=== PATIENT | female | born 1955 | race Caucasian/White ===

== ENCOUNTER 2021-07-14 07:46 | Day surgery (SDC) | payer MEDICARE ==
[~2021-07-14] VITALS: Ht 172.7 cm; Wt 78.0 kg
[~2021-07-14 07:46] MED LIST: ACET325T9 PO; ACETAMINOPHEN 500 MG TABLET PO PRN; ACYC-12 PO; ATOR40TA59 PO; COLLAGEN PO; DICL20GE TP; ESOM40CA PO; ESTR10TA VG; HYDR-2761 PO; HYDROmorphone 2 MG/ML VIAL IVP PRN; IV RINGERS,LACTATED 1000ML 1,000 ML IV SCH; MAGN250T10 PO; MELO15TA6 PO; MORPHINE SULFATE 2 MG/ML INJ. IVP PRN; MULT-445 PO; PROCHLORPERAZINE 10 MG/2 ML VIAL. IVP PRN; SPIR100T4 PO; VENL37.56 PO; ceFAZolin SODIUM IV Push 1 GM VIAL. IVP PRN; fentaNYL PF VIAL 100 MCG/2 ML VIAL IVP PRN
[2021-07-14 08:10] VITALS: BP 129/73
[2021-07-14] MEDS ORDERED: SURGICEL HEMOSTAT 4X8 EACH. ONE (09:24)
[2021-07-14] MEDS ORDERED: IOHEXOL 300 MG/ML 50 ML VIAL. ONE (09:24)
[2021-07-14] MEDS ORDERED: BUPIVACAINE-EPI 0.25% 30 ML VIAL KIT. ONE (09:24)
[2021-07-14] MEDS ORDERED: PROPOFOL 10 MG/ML (20ML) VIAL. IV ONE (09:28)
[2021-07-14] MEDS ORDERED: DEXAMETHASONE SOD PHOS 4 MG/ML VIAL ONE (09:28)
[2021-07-14] MEDS ORDERED: LIDOCAINE 2% PF 5 ML VIAL. ONE (09:28)
[2021-07-14] MEDS ORDERED: ONDANSETRON PF 4 MG/2 ML VIAL. ONE (09:28)
[2021-07-14] MEDS ORDERED: MIDAZOLAM HCL/PF 2 MG/2 ML VIAL. ONE (09:29)
[2021-07-14] MEDS ORDERED: ROCURONIUM 100 MG/10 ML VIAL. ONE (09:29)
[2021-07-14] MEDS ORDERED: fentaNYL PF VIAL 100 MCG/2 ML VIAL ONE ×2 (09:29→11:02)
[2021-07-14] MEDS ORDERED: NEOSTIGMINE METHYLSULFATE 5 MG/5 ML SYRINGE. ONE (09:29)
[2021-07-14] MEDS ORDERED: GLYCOPYRROLATE 1 MG/5 ML VIAL. ONE (09:31)
[2021-07-14] MEDS ORDERED: ePHEDrine PF IN SALINE 50 MG/10 ML SYRINGE. IV ONE (10:55)
--- NOTE | 2021-07-14 11:15 | PDOC4 ---
Operative Note Operative Note Date: July 142020 at 1112 Preoperative diagnosis: Chronic cholecystitis cholelithiasis Postoperative diagnosis: Same Procedure: Laparoscopic cholecystectomy with fluorescein cholangiography Surgeon: Rubens Specimen: Gallbladder Dictation: Patient is a 65-year-old female with complaints of right upper quadrant abdominal pain ultrasound showing gallstones. Procedure of laparoscopic cholecystectomy was explained to the patient detail risk benefits were also discussed including bleeding infection injury to intra-abdominal contents possible necessitating further open operations alternatives to this procedure also discussed with patient who seemed to understand and gave a verbal written consent to have procedure performed. Patient was taken to the operating room placed in the supine position general anesthesia was initiated once patient was sleeping intubated her abdomen was prepped and draped usual sterile fashion using ChloraPrep. Area just below the umbilicus was injected with quarter percent Marcaine with epinephrine incision made with a blade scalpel and a varies needle was placed within the abdomen creating pneumoperitoneum once this was complete the millimeter port was placed in a 5 mm camera was placed within the abdomen which was inspected no other abnormalities were noted. A 5 mm port was placed in the epigastrium a 5 mm port was placed in the right midabdomen and a 5 mm port was placed in the right lateral abdomen. The dome of the g allbladder is grasped retracted cephalad the infundibulum the gallbladder is grasped retracted laterally exposing the triangle of adherent tissues were taken down with blunt dissection the fluorescein cholangiography was performed which showed good dye in the cystic duct and common bile duct not suggestive of any obstruction. The cystic duct was doubly clipped and transected the cystic artery was clipped and transected the gallbladder is taken off the liver with hook electrocautery placed in Endo Catch bag and removed the umbilicus the right upper quadrant was irrigated and suctioned dry hemostasis deemed be appropriate the pneumoperitoneum was reduced all ports were removed the fascial defect at the umbilicus was closed with [id number] 0 Vicryl suture and skin was reapproximated all port sites for subcuticular Monocryl Mastisol Steri-Strips and island dressings were applied. Patient was awakened and extubated in the operating room taken to recovery in stable condition all sponge instrument needle counts listed as correct estimated blood loss 10 mL. CHELY WATSON MD Jul 14, 2021 11:15
[2021-07-14] MEDS ORDERED: OXYC-325 PO (11:17)
--- NOTE | 2021-07-14 11:20 | DISCH ---
DISCHARGE INSTRUCTIONS Condition on Discharge Condition on Discharge: Stable Activity After Discharge Activity Instructions for Disc: Avoid exertion Other activity instructions: No lifting more than 20 pounds for 2-week Diet after Discharge Diet after Discharge: Low Fat Wound Incision Care Other wound/incision instructi: Jazlyn shower in 24-hour Contacting the DRMelodie after DC Call your doctor for: If your condition worsens Follow-Up Follow up with: Dr. Watson in 2 weeks CHELY WATSON MD Jul 14, 2021 11:19
[2021-07-14] MEDS ORDERED: oxyCODONE/APAP 5/325 1 TAB TABLET ONE (11:55)
[2021-07-14] MEDS ORDERED: oxyCODONE/APAP 5/325 1 TAB TABLET PO ONE (12:00)
[2021-07-14 12:29] VITALS: BP 116/56
[2021-07-15] MEDS ORDERED: CEPH500C PO (03:59)
--- NOTE | 2021-07-15 18:06 | PATHOLOGY ---
[facility] Accession Number: [id number] . 01 Material submitted: . gallbladder - GALLBLADDER AND CONTENTS . 01 Clinical history: . CHRONIC CHOLECYSTITIS WITH CALCULUS . 02 Diagnosis: Gallbladder, cholecystectomy: - Cholelithiasis. - Chronic and mild acute cholecystitis. (JPM:dominic; 07/15/2021) S 07/15/2021 1429 Local . 02 Comment: There is no evidence of malignancy. (JPM:dominic; 07/15/2021) . 02 Electronically signed: . Amilcar Garcia MD, Pathologist NPI- [id number] . 01 Gross description: . Fixative: Formalin Labeled: Gallbladder and contents Specimen received: Previously disrupted gallbladder Dimensions: 8.2 x 3.5 x 2.4 cm Serosa: Purple-red to purple-griffin and smooth with mild vasculature Lymph node: None identified Mucosa: Velvety, bile-stained Average wall thickness: Up to 0.3 cm Calculi: Present displaying a black, multifaceted appearance Abnormalities: None identified . A1- Economics Consultant body, fundus, and the cystic duct margin. ([facility]; 07/14/2021) NRI/NRI 07/14/20216 Local . 02 Pathologist provided ICD-10: K80.12 . 02 CPT . 232892 Specimen Comment: A courtesy copy of this report has been sent to [phone], [phone] Specimen Comment: [id number] Specimen Comment: Report sent to / DR BAKER Specimen Comment: A duplicate report has been generated due to demographic updates. Performed at: [address], [place], [place] [id number] MD Jose Gtz MD Phone: [phone] Performed at: 02 [facility] [address] [place], [place] [id number] MD Amilcar Garcia MD Phone: [phone]
== END 2021-07-14 12:50 | disposition home or self-care (01) ==
LOC: SURG 07:46
PROVIDERS: ATTEND Surgery
DX: K80.12 Calculus of gallbladder with acute and chronic cholecystitis without obstruction (principal); R10.9 Unspecified abdominal pain; E78.00 Pure hypercholesterolemia, unspecified; F32.9 Major depressive disorder, single episode, unspecified; K21.9 Gastro-esophageal reflux disease without esophagitis; Z98.890 Other specified postprocedural states; Z79.899 Other long term (current) drug therapy
CPT/HCPCS: 47563; A4213; A4364; A4930; A6219; J0690; J1100; J2250; J2405; J2704; J2710; J3010; J3490; 88304; A4657; Q9967

== ENCOUNTER 2021-07-14 23:07 | Emergency (ER) | payer MEDICARE ==
[~2021-07-14] VITALS: Ht 172.7 cm; Wt 75.0 kg
[~2021-07-14 23:07] MED LIST changes: -ACETAMINOPHEN 500 MG TABLET PO PRN; -HYDROmorphone 2 MG/ML VIAL IVP PRN; -IV RINGERS,LACTATED 1000ML 1,000 ML IV SCH; -MORPHINE SULFATE 2 MG/ML INJ. IVP PRN; +OXYC-325 PO; -PROCHLORPERAZINE 10 MG/2 ML VIAL. IVP PRN; -ceFAZolin SODIUM IV Push 1 GM VIAL. IVP PRN; -fentaNYL PF VIAL 100 MCG/2 ML VIAL IVP PRN
[2021-07-14] MEDS ORDERED: FAMOTIDINE 20 MG/2 ML VIAL IVP ONE (23:45)
[2021-07-14] MEDS ORDERED: IV NORMAL SALINE 1000ML BAG 1,000 ML IV ONE (23:45)
[2021-07-14] MEDS ORDERED: HYDROmorphone 2 MG/ML VIAL IVP ONE (23:45)
[2021-07-15 00:08] LABS: BASO # 0.1 x10^3/uL (0.0-0.2); BASO % 1 % (0-3); EOS % 0 % (0-3); HEMATOCRIT 35.3 % (36.0-47.0); HEMOGLOBIN 12.1 g/dL (12.0-15.5); LYMPH # 0.5 x10^3/uL (1.0-4.8); LYMPH % 4 % (24-48); MEAN CORPUSCULAR HEMOGLOBIN 31 pg (25-35); MEAN CORPUSCULAR HGB CONC 34 g/dL (31-37); MEAN CORPUSCULAR VOLUME 89 fL (79-100); MONO # 0.6 x10^3/uL (0.0-1.1); MONO % 5 % (0-9); NEUT # 10.5 x10^3/uL (1.8-7.7); NEUT % 90 % (31-73); PLATELET COUNT 213 x10^3/uL (140-400); RED BLOOD COUNT 3.96 x10^6/uL (3.50-5.40); RED CELL DISTRIBUTION WIDTH 13.3 % (11.5-14.5); WHITE BLOOD COUNT 11.7 x10^3/uL (4.0-11.0)
--- NOTE | 2021-07-15 00:13 | RAD ---
XR CHEST 1V Clinical Indication: Reason: shoulder pain Comparison: None. Findings: The cardiomediastinal silhouette is normal. There is bibasilar atelectasis. There is no pneumothorax. No pleural effusion is appreciated. No acute bone abnormality. There is mild intraperitoneal free air. In discussion with Dr. Fuller, patient had cholecystectomy toda y. IMPRESSION: Bibasilar atelectasis. FOR INTERNAL CODING PURPOSES Critical result: Findings discussed with Dr. Fuller in the ED at 07/15/2021 12:08 AM. RESULT CODE: (C) Electronically signed by: Jason Swift MD (07/15/2021 12:10 AM) [facility]
--- NOTE | 2021-07-15 00:17 | RAD ---
RIGHT SHOULDER , 3 VIEWS Clinical Indication: Reason: shoulder pain / Spl. Instructions: / History: Comparison: None. Findings: There is no acute fracture or dislocation. The acromioclavicular and glenohumeral joints are intact. There is mild arthropathy. There is right basilar atelectasis. There is no evidence of a displaced ri b fracture. There is no soft tissue abnormality. Mild intraperitoneal free air on the right is compatible with history of gallbladder surgery today. IMPRESSION: No acute fracture or dislocation. Electronically signed by: Jason Swift MD (07/15/2021 12:14 AM) [facility]
[2021-07-15 00:18] LABS: CALCIUM 9.4 mg/dL (8.5-10.1); GFR 55.3; POTASSIUM 4.5 mmol/L (3.5-5.1)
[2021-07-15 00:24] LABS: ALBUMIN 3.7 g/dL (3.4-5.0); ALBUMIN/GLOBULIN RATIO 0.9 (1.0-1.7); MAGNESIUM 2.1 mg/dL (1.8-2.4); TOTAL BILIRUBIN 0.6 mg/dL (0.2-1.0); TOTAL PROTEIN 7.6 g/dL (6.4-8.2)
--- NOTE | 2021-07-15 01:12 | PHYS DOC ---
General Adult EDM: Chief Complaint: POST-OP PROBLEM HPI: HPI: 65-year-old female past medical history of hyperlipidemia, presents the ED with her , (patient consents to his/her/their knowledge and involvement in pts ' medical care), complaints of right shoulder pain that started prior to ED arrival. Reports she had a laparoscopic cholecystectomy with Dr. Pacheco earlier today. Is belching and has tolerated oral intake since. Denies flatus. No bowel movement since surgery. Took oxycodone at 6pm. Also reports pain at incision sites. Review of Systems: Review of Systems: Constitutional: Denies fever or chills. [] Eyes: Denies change in visual acuity. [] HENT: Denies nasal congestion or sore throat. [] Respiratory: Denies cough or shortness of breath. [] Cardiovascular: Denies chest pain or edema. [] GI: Denies nausea, vomiting, bloody stools or diarrhea. [] : Denies dysuria or hematuria Musculoskeletal: Denies back pain or flank pain Integument: Denies rash or diaphoresis Neurologic: Denies headache, focal weakness or sensory changes. [] Endocrine: Denies polyuria or polydipsia. [] Lymphatic: Denies swollen glands. [] Psychiatric: Denies depression or anxiety. [] Heart Score: C/O Chest Pain: No Risk Factors: Risk Factors: DM, Current or recent (<one month) smoker, HTN, HLP, family history of CAD, obesity. Risk Scores: Score 0 - 3: 2.5% MACE over next 6 weeks - Discharge Home Score 4 - 6: 20.3% MACE over next 6 weeks - Admit for Clinical Observation Score 7 - 10: 72.7% MACE over next 6 weeks - Early Invasive Strategies Current Medications: Current Medications Medications (Trade) Dose Ordered Sig/Romeo Start Time Stop Time Status Last Admin Dose Admin Famotidine (Pepcid Vial) 20 mg 1X ONCE 07/14/21 23:45 07/14/21 23:46 DC 07/15/21 00:09 20 MG Hydromorphone HCl (Dilaudid) 1 mg 1X ONCE 07/14/21 23:45 07/14/21 23:46 DC 07/15/21 00:06 1 MG Sodium Chloride 1,000 ml @ 1,000 mls/hr 1X ONCE 07/14/21 23:45 07/15/21 00:44 DC 07/15/21 00:07 1,000 MLS/HR Allergies: Allergies: Allergies Coded Allergies Type Severity Reaction Last Updated Verified No Known Drug Allergies 07/14/21 No Physical Exam: PE: Constitutional: Appears in pain, afebrile but nontoxic-appearing HENT: Normocephalic, atraumatic, Eyes: EOMI, conjunctiva normal, no discharge. Neck: Normal range of motion, supple, Cardiovascular: S1/2 present, regular rhythm Lungs & Thorax: Speaking in full sentences, bilateral equal chest rise, no tachypnea or increased work of breathing Abdomen: soft, no guarding or rigidity, incision sites clean/dry/intact with no rash or wound dehiscence Skin: Warm, dry, no erythema, no rash. [] Back: No tenderness, no CVA tenderness. [] Extremities: No tenderness, no cyanosis, no lower extremity edema, right shoulder with full range of motion motion, equal radial pulses, axillary nerve sensation intact bilaterally Neurologic: Alert and oriented X 3, normal motor function, normal sensory function, no focal deficits noted. [] Psychologic: Affect normal, judgement normal, mood normal. [] Current Patient Data: Labs: Laboratory Tests Test 07/15/21 00:02 White Blood Count 11.7 x10^3/uL (4.0-11.0) H Red Blood Count 3.96 x10^6/uL (3.50-5.40) Hemoglobin 12.1 g/dL (12.0-15.5) Hematocrit 35.3 % (36.0-47.0) L Mean Corpuscular Volume 89 fL (79-100) Mean Corpuscular Hemoglobin 31 pg (25-35) Mean Corpuscular Hemoglobin Concent 34 g/dL (31-37) Red Cell Distribution Width 13.3 % (11.5-14.5) Platelet Count 213 x10^3/uL (140-400) Neutrophils (%) (Auto) 90 % (31-73) H Lymphocytes (%) (Auto) 4 % (24-48) L Monocytes (%) (Auto) 5 % (0-9) Eosinophils (%) (Auto) 0 % (0-3) Basophils (%) (Auto) 1 % (0-3) Neutrophils # (Auto) 10.5 x10^3/uL (1.8-7.7) H Lymphocytes # (Auto) 0.5 x10^3/uL (1.0-4.8) L Monocytes # (Auto) 0.6 x10^3/uL (0.0-1.1) Eosinophils # (Auto) 0.0 x10^3/uL (0.0-0.7) Basophils # (Auto) 0.1 x10^3/uL (0.0-0.2) Platelet Estimate Pending Sodium Level 134 mmol/L (136-145) L Potassium Level 4.5 mmol/L (3.5-5.1) Chloride Level 100 mmol/L (98-107) Carbon Dioxide Level 25 mmol/L (21-32) Anion Gap 9 (6-14) Blood Urea Nitrogen 22 mg/dL (7-20) H Creatinine 1.0 mg/dL (0.6-1.0) Estimated GFR (Cockcroft-Gault) 55.3 BUN/Creatinine Ratio 22 (6-20) H Glucose Level 224 mg/dL (70-99) H Calcium Level 9.4 mg/dL (8.5-10.1) Magnesium Level 2.1 mg/dL (1.8-2.4) Total Bilirubin 0.6 mg/dL (0.2-1.0) Aspartate Amino Transferase (AST) 42 U/L (15-37) H Alanine Aminotransferase (ALT) 234 U/L (14-59) H Alkaline Phosphatase 163 U/L (46-116) H Troponin I High Sensitivity 8 ng/L (4-50) Total Protein 7.6 g/dL (6.4-8.2) Albumin 3.7 g/dL (3.4-5.0) Albumin/Globulin Ratio 0.9 (1.0-1.7) L Lipase 71 U/L (73-393) L Laboratory Tests 07/15/21 00:02 Laboratory Tests 07/15/21 00:02 Vital Signs: Vital Signs Date Time Temp Pulse Resp B/P (MAP) Pulse Ox O2 Delivery O2 Flow Rate FiO2 07/15/21 00:06 14 92 Room Air EKG: EKG: Sinus rhythm 72 bpm, no axis deviation, normal intervals, questionable T wave inversion in lead III, no ST elevation or ST depression, denies chest pressure or tightness Radiology/Procedures: Radiology/Procedures: IMAGING REPORT Signed PATIENT: TANNA HARVEY ACCOUNT: [id number] : 1955 LOCATION: ER AGE: 65 SEX: F EXAM STATUS: REG ER ORD. PHYSICIAN: VICENTE DAVIS DO REASON: shoulder pain PROCEDURE: SHOULDER 2+V RIGHT RIGHT SHOULDER , 3 VIEWS Clinical Indication: Reason: shoulder pain / Spl. Instructions: / History: Comparison: None. Findings: There is no acute fracture or dislocation. The acromioclavicular and glenohumeral joints are intact. There is mild arthropathy. There is right basilar atelectasis. There is no evidence of a displaced rib fracture. There is no soft tissue abnormality. Mild intraperitoneal free air on the right is compatible with history of gallbladder surgery today. IMPRESSION: No acute fracture or dislocation. Electronically signed by: Jason Swift MD (07/15/2021 12:14 AM) [facility] DICTATED and SIGNED BY: JASON SWIFT MD DATE: 07/15/21 [id number] 0 IMAGING REPORT Signed PATIENT: TANNA HARVEY ACCOUNT: [id number] : 1955 LOCATION: ER AGE: 65 SEX: F EXAM STATUS: REG ER ORD. PHYSICIAN: VICENTE DAVIS DO REASON: shoulder pain PROCEDURE: PORTABLE CHEST 1V XR CHEST 1V Clinical Indication: Reason: shoulder pain Comparison: None. Findings: The cardiomediastinal silhouette is normal. There is bibasilar atelectasis. There is no pneumothorax. No pleural effusion is appreciated. No acute bone abnormality. There is mild intraperitoneal free air. In discussion with Dr. Davis, patient had cholecystectomy today. IMPRESSION: Bibasilar atelectasis. FOR INTERNAL CODING PURPOSES Critical result: Findings discussed with Dr. Davis in the ED at 07/15/2021 12:08 AM. RESULT CODE: (C) Electronically signed by: Jason Swift MD (07/15/2021 12:10 AM) [facility] DICTATED and SIGNED BY: JASON SWIFT MD DATE: 07/15/21 [id number] 0 IMAGING REPORT Signed PATIENT: TANNA HARVEY ACCOUNT: [id number] : 1955 LOCATION: ER AGE: 65 SEX: F EXAM STATUS: REG ER ORD. PHYSICIAN: VICENTE DAVIS DO REASON: s/p cholecystectomy, right SHoulder pain;OMNI 300, 60ML PROCEDURE: CT ABD PELV W/ IV CONTRST ONLY PQRS Compliance Statement: One or more of the following individualized dose reduction techniques were utilized for this examination: 1. Automated exposure control 2. Adjustment of the mA and/or kV according to patient size 3. Use of iterative reconstruction technique CT ABDOMEN+PELVIS W Clinical Indication: Reason: s/p cholecystectomy, right SHoulder pain; Comparison: None. Technique: Helical CT imaging of the abdomen and pelvis is performed after 60 cc of Omnipaque 300 IV contrast. Oral contrast not administered. Findings: There is moderate bilateral dependent atelectasis. There is respiratory motion artifact. The cardiac size is normal. There is mild intraperitoneal free air in the upper abdomen related to recent cholecystectomy. There are cholecystectomy clips. There is minimal induration of the gallbladder fossa, likely postsurgical. No fluid collection is seen. Moderate calcifications of the abdominal aorta, no aneurysm. The liver, spleen, pancreas, adrenal glands, and kidneys are normal. The stomach is unremarkable. There is a proximal duodenal diverticula measuring 2.8 x 2.6 cm. There is a distal duodenal diverticulum measuring 3.5 x 3.6 cm. The diverticula are thin-walled, air-fluid levels are seen. There is no small bowel obstruction. Scattered stool in the colon. There is no colon wall thickening. The appendix is normal. No abdominal adenopathy or free fluid. The urinary bladder is distended, otherwise normal. Uterus unremarkable. Ovaries are symmetric. No pelvic free fluid is seen. No acute bone abnormality. IMPRESSION: 1. Postsurgical changes of cholecystectomy. 2. Moderate bilateral dependent atelectasis. 3. There are 2 duodenal diverticula. Electronically signed by: Jason Swift MD (07/15/2021 2:57 AM) [facility] DICTATED and SIGNED BY: JASON SWIFT MD DATE: 07/15/21 [id number] Course & Med Decision Making: Course & Med Decision Making Pertinent Labs and Imaging studies reviewed. (See chart for details) Concern for postoperative right shoulder pain, suspect referred pain from ab dominal gas. Analgesia controlled emergency department. Chest x-ray concerning for bilateral atelectasis and urinalysis concerning for contaminated sample, possible UTI. Given both atelectasis and UTI or complications postop, will prescribe antibiotics. Patient's pain well controlled in the emergency department. Will discharge home with strict ED return precautions were given for fever, dehydration, severe pain or syncope. Encouraged urgent outpatient follow-up with PMD and general surgery for definitive management. Life- threatening processes were considered but are low suspicion at this time, given history, physical exam and ED workup. Pt was educated on all prescription medications and adverse effects. All patient's questions were answered and pt was stable at time of discharge. Life/limb-threatening differential includes but is not limited to, avascular necrosis, septic arthritis, malignancy, compartment syndrome, fracture/ligamentous injury/overuse, decompression sickness, seronegative spondyloarthropathies, trauma including dislocation/fracture, Lyme disease, lupus, arthritis differentials, gout/pseudogout or decompression sickness. I have spoken with the patient and/or caregivers. I explained the patient's condition, diagnoses and treatment plan based on the information available to me at this time. I have answered the patient and/or caregiver's questions and addressed any concerns. The patient and/or caregivers have a good understanding of patient's diagnosis, condition and treatment plan as can be expected at this point. Vital signs have been stable. Patient's condition is stable and appropriate for discharge from the emergency department. Patient will pursue further outpatient evaluation with primary care physician or other designated or consulting physician as outlined in the discharge instructions. The patient and/or caregivers are agreeable to this plan of care and follow-up instructions have been explained in detail. The patient and/or caregivers have received these instructions in written form and have expressed an understanding of the discharge instructions. The patient and/or caregivers are aware that any significant change of condition or worsening of symptoms should prompt immediate return to this or the closest emergency department or call to 911. Chato Disclaimer: Chato Disclaimer: This electronic medical record was generated, in whole or in part, using a voice recognition dictation system. Departure Departure Impression: Primary Impression: Right shoulder pain Additional Impressions: Bilateral atelectasis UTI (urinary tract infection) Disposition: HOME / SELF CARE / HOMELESS Condition: STABLE Referrals: ORQUIDEA BAKER (PCP) Follow-up with your primary care physician in 24 to 48 hours OR FOLLOW UP WITH FAMILY MEDICINE: [address] [place] [address] Patient Instructions: Pain Relief Preoperatively and Postoperatively, Urinary Tract Infection Additional Instructions: FOLLOW UP WITH SURGERY: FOR DEFINITIVE MANAGEMENT with Dr. Pacheco [facility] General Surgery Address: [address], [address] [place] [address] EMERGENCY DEPARTMENT GENERAL DISCHARGE INSTRUCTIONS Thank you for coming to [facility] Emergency Department (ED) today and trusting us with you care. We trust that you had a positive experience in our Emergency Department. If you wish to speak to the department management, you may call the Director at [phone]. YOUR FOLLOW UP INSTRUCTIONS ARE FOLLOWS: 1. Do you have a private Doctor? If you do not have a private doctor, please ask for a resource list of physicians or clinics that may be able to assist you with follow up care. 2. The Emergency Physicain has interpreted your x-rays. The X-Ray specialist will also review them. If there is a change in the findings, you will be notified in 48 hours when at all possible. 3. A lab test or culture has been done, your results will be reviewed and you will be notified if you need a change in treatment. ADDITIONAL INSTRUCTIONS AND INFORMATION: 1. Your care today has been supervised by a physician who is specially trained in emergency care. Many problems require more than one evaluation for a complete diagnosis and treatment. We recommend that you schedule your follow up appointment as recommended to ensure complete treatment of you illness or injury. If you are unable to obtain follow up care and continue to have a problem, or if your condition worsens, we recommend that you return to the ED. 2. We are not able to safely determine your condition over the phone nor are we able to give sound medical advice over the phone. For these safety reasons, if you call for medical advice we will ask you to come to the ED for further evaluation. 3. If you have any questions regarding these discharge instructions please call the ED at [phone]. SAFETY INFORMATION: In the interest of safety, wellness, and injury prevention; we encourage you to wear your sealbelt, if you smoke; quite smoking, and we encourage family to use a protecti ve helmet for bicycling and other sporting events that present an increased risk for head injury. IF YOUR SYMPTOMS WORSEN OR NEW SYMPTOMS DEVELOP, OR YOU HAVE CONCERNS ABOUT YOUR CONDITION; OR IF YOUR CONDITION WORSENS WHILE YOU ARE WAITING FOR YOUR FOLLOW UP APPOINTMENT; EITHER CONTACT YOUR PRIMARY CARE DOCTOR, THE PHYSICIAN WHOSE NAME AND NUMBER YOU WERE GIVEN, OR RETURN TO THE ED IMMEDIATELY. Scripts Cephalexin (KEFLEX) 500 Mg Capsule 1 CAP PO QID for 10 Days, #40 CAP Prov: VICENTE DAVIS DO 07/15/21 VICENTE DAVIS DO Jul 15, 2021 01:12
[2021-07-15] MEDS ORDERED: HYDROmorphone 2 MG/ML VIAL IVP ONE (02:15)
[2021-07-15] MEDS ORDERED: IOHEXOL 300 MG/ML 100ML VIAL. IV ONE (02:30)
[2021-07-15] MEDS ORDERED: CONTRAST GIVEN. MC PRN (02:30)
--- NOTE | 2021-07-15 02:59 | RAD ---
PQRS Compliance Statement: One or more of the following individualized dose reduction techniques were utilized for this examinat ion: 1. Automated exposure control 2. Adjustment of the mA and/or kV according to patient size 3. Use of iterative reconstruction technique CT ABDOMEN+PELVIS W Clinical Indication: Reason: s/p cholecystectomy, right SHoulder pain; Comparison: None. Technique: Helical CT imaging of the abdomen and pelvis is performed after 60 cc of Omnipaque 300 IV contrast. Oral contrast not administered. Findings: There is moderate bilateral dependent atelectasis. There is respiratory motion artifact. The cardiac size is normal. There is mild intraperitoneal free air in the upper abdomen related to recent cholecystectomy. There are cholecystectomy clips. There is minimal induration of the gallbladder fossa, likely postsurgical. No fluid collection is seen. Moderate calcifications of the abdominal aorta, no aneurysm. The liver, spleen, pancreas, adrenal gla nds, and kidneys are normal. The stomach is unremarkable. There is a proximal duodenal diverticula measuring 2.8 x 2.6 cm. There i s a distal duodenal diverticulum measuring 3.5 x 3.6 cm. The diverticula are thin-walled, air-fluid l evels are seen. There is no small bowel obstruction. Scattered stool in the colon. There is no colon wall thickening. The appendix is normal. No abdominal adenopathy or free fluid. The urinary bladder is distended, otherwise normal. Uterus unremarkable. Ovaries are symmetric. No pe lvic free fluid is seen. No acute bone abnormality. IMPRESSION: 1. Postsurgical changes of cholecystectomy. 2. Moderate bilateral dependent atelectasis. 3. There are 2 duodenal diverticula. Electronically signed by: Jason Swift MD (07/15/2021 2:57 AM) [facility]
[2021-07-15 03:11] LABS: BILIRUBIN,URINE NEGATIVE (NEG); CLARITY,URINE CLEAR; COLOR,URINE YELLOW; NITRITE,URINE NEGATIVE (NEG); PROTEIN,URINE NEGATIVE (NEG-TRACE)
[2021-07-15 03:17] LABS: BACTERIA,URINE FEW /HPF (0-FEW); RBC,URINE 0 /HPF (0-2)
[2021-07-15] MEDS ORDERED: CEPH500C PO (03:59)
[2021-07-15 04:04] LABS: % BANDS 5 % (0-9); % LYMPHS 8 % (24-48); % MONOS 4 % (0-10); % SEGS 83 % (35-66); PLT ESTIMATE ADEQUATE (ADEQUATE); TOXIC GRANULATION SLIGHT
[2021-07-15 04:07] VITALS: BP 102/59
--- NOTE | 2021-07-15 06:35 | EKG ---
[facility] [address] [place] [address] Test Date: 2021-07-15 Test Time: 00:14:08 Pat Name: TANNA HARVEY Department: Room: Gender: F Director Mba: : 1955 Requested By: VICENTE DAVIS Order Number: [id number] Reading MD: Marvin Wayne MD Measurements Intervals [place] Rate: 72 P: 24 WY: 148 QRS: 2 QRSD: 98 T: 22 QT: 376 QTc: 413 Interpretive Statements SINUS RHYTHM Electronically Signed On 07-18-2021 14:01:06 VALUE ANALYST by Marvin Wayne MD
== END 2021-07-15 04:25 | disposition home or self-care (01) ==
LOC: ER 23:07
DX: M25.511 Pain in right shoulder (principal); J98.11 Atelectasis; N39.0 Urinary tract infection, site not specified; E78.5 Hyperlipidemia, unspecified; Z90.49 Acquired absence of other specified parts of digestive tract
CPT/HCPCS: 36415; 71045; 73030; 74177; 80053; 81001; 83690; 83735; 84484; 85007; 85025; 87086; 93005; 96361; 96374; 96375; 96376; 99285; J1170; J3490; J7030; Q9967